=== PATIENT | male | born 2000 | race Caucasian/White ===

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

== ENCOUNTER 2019-04-28 20:27 | Emergency (ER) | payer SELFPAY ==
[~2019-04-28] VITALS: Ht 180.3 cm; Wt 68.9 kg
[2019-04-28 20:39] VITALS: Ht 180.3 cm; Wt 68.9 kg
[2019-04-28 22:29] VITALS: BP 112/66
== END 2019-04-28 22:29 | disposition home or self-care (01) ==
LOC: ED 20:27
DX: J06.9 Acute upper respiratory infection, unspecified (principal); R19.7 Diarrhea, unspecified; R11.0 Nausea

== ENCOUNTER 2020-02-02 01:42 | Emergency (ER) | payer MEDICAID ==
[~2020-02-02] VITALS: Ht 180.3 cm; Wt 68.5 kg
[2020-02-02 02:08] VITALS: Ht 180.3 cm; Wt 68.5 kg
[2020-02-02 03:20] LABS: BASOPHIL % 3.4 % (0-2); PLATELET COUNT 198 x10^3mcL (130-400); RED CELL DISTRIBUTION WIDTH 12.5 % (11.5-14.5)
[2020-02-02 03:21] LABS: CALCIUM 9.3 mg/dL (8.5-10.1); CARBON DIOXIDE 28.1 mmol/L (21-32); CHLORIDE SERUM 100 mmol/L (98-107); CREATININE SERUM 0.8 mg/dL (0.7-1.3); GFR1 > 60 mL/min; GLUCOSE SERUM 83 mg/dL (74-106); POTASSIUM SERUM 3.7 mmol/L (3.5-5.1); SODIUM SERUM 137 mmol/L (136-145)
[2020-02-02 03:25] LABS: ALBUMIN 4.8 g/dL (3.4-5.0); ALKALINE PHOSPHATASE 44 U/L (46-116); ALT/SGPT 26 U/L (16-63); AST/SGOT 11 U/L (15-37); BILIRUBIN TOTAL 0.92 mg/dL (0.20-1.00); LIPASE 98 IU/L (73-393); TOTAL PROTEIN, SERUM 7.3 g/dL (6.4-8.2)
[2020-02-02 04:05] VITALS: BP 123/86
== END 2020-02-02 04:05 | disposition home or self-care (01) ==
LOC: ED 01:42
PROVIDERS: Emergency Medicine
DX: R10.10 Upper abdominal pain, unspecified (principal)
CPT/HCPCS: 36415